=== PATIENT | male | born 2000 | race African-American/Black ===

== ENCOUNTER 2022-10-12 01:00 | Emergency (ER) | payer OTHER ==
[~2022-10-12] VITALS: Ht 182.8 cm; Wt 81.6 kg
[2022-10-12] MEDS ORDERED: AMOX-CLAV 875-1 EACH PO (02:57)
== END 2022-10-12 03:16 | disposition home or self-care (01) ==
LOC: ED 01:00
DX: J06.9 Acute upper respiratory infection, unspecified (principal); Z20.822 Contact with and (suspected) exposure to COVID-19; H66.92 Otitis media, unspecified, left ear